=== PATIENT | female | born 1955 | race Caucasian/White ===

== ENCOUNTER 2016-05-13 10:03 | Inpatient (IN) ==
--- NOTE | 2016-05-10 15:03 | Discharge Summary ---
<Chrissy Botello - Last Filed: 05/10/16 15:01> Date of Encounter: 05/10/16 - Discharge Diagnosis (1) Rotator cuff arthropathy Priority: Primary Status: Chronic Qualifiers: Laterality: left Qualified Code(s): M12.812 - Other specific arthropathies , not elsewhere classified, left shoulder (2) Hypertension Priority: Secondary Status: Chronic Qualifiers: Hypertension type: essential hypertension Qualified Code(s): I10 - Essential (primary) hypertension (3) GERD (gastroesophageal reflux disease) Priority: Secondary Status: Chronic Qualifiers: Esophagitis presence: esophagitis presence not specified Qualified Code(s) : K21.9 - Gastro-esophageal reflux disease without esophagitis (4) Tobacco dependence Priority: Secondary Status: Chronic - Discharge Medications Home Medications: OxyCODONE Immed Rel [Roxicodone 5 MG] 5 - 10 mg PO Q6HR PRN #40 tablet 05/12/16 [Rx] Celecoxib [Celebrex] 200 mg PO HS 05/13/16 [History] Cholecalciferol (D-3) [Vitamin D] 2,000 unit PO DAILY 05/13/16 [History] ClonazePAM [Klonopin] 0.5 mg PO BID 05/13/16 [History] Cyclobenzaprine [Flexeril] 10 mg PO DAILY PRN 05/13/16 [History] Lisinopril/Hydrochlorothiazide [Zestoretic 20-25 mg Tablet] 1 each PO DAILY 04/26 [History] Omeprazole [PriLOSEC] 40 mg PO DAILY 05/13/16 [History] Tramadol HCl/Acetaminophen [Ultracet Tablet] 1 each PO BID PRN 05/13/16 [History ] Venlafaxine HCl [Effexor Xr] 225 mg PO HS 05/13/16 [History] Allergies/Adverse Reactions: Allergies No Known Allergies Allergy (Verified 05/13/16 10:55) Primary care physician: Jabier Armstrong MD - Patient Status Disposition: Home, Self-Care Condition: Good - Discharge Instructions Follow Up With: Jabier Armstrong MD [Primary Care Provider] - - Hospital Course Hospital course: Ms. Moses is a 60 year old female - Time Spent with Patient Total time spent providing and/or coordinating discharge services: <Tanisha Ruelas - Last Filed: 05/12/16 21:41> Date of Encounter: 05/12/16 Primary care physician: Jabier Armstrong MD - Hospital Course Hospital course: Ms. Moses is a 60 year old female - Time Spent with Patient Total time spent providing and/or coordinating discharge services: <Omar Parsons - Last Filed: 05/14/16 06:53> Date of Encounter: 05/14/16 Time of Encounter: 06:53 - Discharge Diagnosis (1) Rotator cuff arthropathy Priority: Primary Status: Chronic Qualifiers: Laterality: left Qualified Code(s): M12.812 - Other specific arthropathies , not elsewhere classified, left shoulder (2) Hypertension Priority: Secondary Status: Chronic Qualifiers: Hypertension type: essential hypertension Qualified Code(s): I10 - Essential (primary) hypertension (3) GERD (gastroesophageal reflux disease) Priority: Secondary Status: Chronic Qualifiers: Esophagitis presence: esophagitis presence not specified Qualified Code(s) : K21.9 - Gastro-esophageal reflux disease without esophagitis (4) Tobacco dependence Priority: Secondary Status: Chronic Primary care physician: Jabier Armstrong MD - Patient Status Functional capacity at discharge: independent ambulation Overall status at discharge: patient is back to baseline - Hospital Course Hospital course: Ms. Moses is a 60 year old female The patient had an uneventful postoperative course. They received antibiotics and physical therapy and were discharged in stable condition. There will follow -up in the office in 2 weeks. - Time Spent with Patient Total time spent providing and/or coordinating discharge services:
[2016-05-13] MEDS ORDERED: Albuterol 2.5 MG/3 ML NEBULIZER IH ONE (10:21)
[2016-05-13] MEDS ORDERED: Lidocaine -MPF 1% 2 ML VIAL ID ONE (10:21)
[2016-05-13] MEDS ORDERED: CeFAZolin Pre 2,000 MG/100 ML 2,000 MG/100 ML BAG IVPB ONE (10:21)
[2016-05-13] MEDS ORDERED: Albuterol 2.5 MG/3 ML NEBULIZER ONE (10:24)
[2016-05-13] MEDS ORDERED: Ringers Solution, Lactated 1,000 ML IVC SCH ×2 (10:30→13:00)
[2016-05-13] MEDS ORDERED: Famotidine 20 MG/2 ML VIAL IVP ONE (10:43)
--- NOTE | 2016-05-13 10:54 | Anesthesia Evaluation PreOp ---
Date of Encounter: 05/13/16 Time of Encounter: 10:50 - Past History Planned Operation: Left Total Shoulder Replacement Cardiac History: HTN Pulmonary History: Smoker [employer] History: Other (Fibromyalgia) Other Medical History: GERD Anesthesia History: No Prior Anesthetic Complications : No Alcohol Use: none Drug use: none Medications and Allergies OxyCODONE Immed Rel [Roxicodone 5 MG] 5 - 10 mg PO Q6HR PRN #40 tablet 05/12/16 [Rx] Allergies No Known Allergies Allergy (Verified 05/13/16 10:55) - Meds/Allergy Pre-op Review Medications Reviewed: Yes Allergies Reviewed: Yes Beta Blockers on Current Med List: No Anesthesia Results - Labs Laboratory Tests 05/03/16 05/03/16 16:00 16:00 Hgb 12.6 Hct 37.9 Plt Count 368 Sodium 138 Potassium 3.8 BUN 12 Creatinine 0.78 - Imaging EKG: report reviewed (ST) Anesthesia Exam O2 Sat Height 1.63 m Height 1.63 m Weight 73.482 kg Weight 73.482 kg O2 Sat by Pulse Oximetry 98 O2 Sat by Pulse Oximetry 98 Vital Signs Temp Pulse Resp BP Pulse Ox 98.6 F 91 18 124/91 98 05/13/16 10:35 05/13/16 10:35 05/13/16 10:35 05/13/16 10:35 05/13/16 10:35 Height: 5'4 Weight: 162 lbs NPO (# of Hours): MN Pain Scale: 0 - HEENT Pupil (Motor): Pupils equal, EOMI Mallampati: III Teeth: Normal Oral Opening: Less than or equal to 3 - RUBBER [employer]OL[employer] LOC: Oriented [employer]ER Motor: Normal RUE, Normal LUE, Normal RLE, Normal LLE, Normal Face [employer] Sensory: Normal: RUE, LUE, RLE, LLE, Face - Cardiac Rhythm: Regular Murmur: None JVD: No Carotid Bruit: No - Pulmonary Breath Sounds: bilateral Clear Respiratory Effort: Symmetrical Anesthesia Assess/Plan ASA Score: 2 Modified Franck Scale for Level of Consciousness: Cooperative, oriented, and tranquil Anesthetic Plan: General, Regional Monitoring Plan: Standard Monitors Recovery Plan: PACU (Discussed GA and RA, agrees to proceed)
--- NOTE | 2016-05-13 10:55 | History & Physical Report ---
Date of Encounter: 05/13/16 Time of Encounter: 10:55 24 Hour HP Update - Instructions Instructions: If the History and Physical is less than 30 days old and was completed prior to A.M. admission and or procedure and has NOT been updated on calendar day of procedure please complete this update prior to performing procedure. - Update Patient reports changes in Medical Condition: No Changes in examination, assessment, or condition: No Changes in Medication: No Preop tests/diagnostics Reviewed: Yes Surgery Remains Indicated: Yes Consent for Planned Operative Procedure(s) Verified: Yes - Pre-Operative Checklist Preoperative Checklist Indicated: No Prophylactic Antibiotic Ordered: Yes Is VTE Prophylaxis Indicated?: Yes
[2016-05-13] MEDS ORDERED: *HR* Succinylcholine 200 MG/10 ML VIAL IVP ONE (11:39)
[2016-05-13] MEDS ORDERED: Ondansetron 4 MG/2 ML VIAL ONE (11:39)
[2016-05-13] MEDS ORDERED: Lidocaine -MPF 2% 2 ML VIAL ONE (11:39)
[2016-05-13] MEDS ORDERED: *HR* FentaNYL (PF) 100 MCG/2 ML VIAL ONE (11:39)
[2016-05-13] MEDS ORDERED: Dexamethasone 4 MG/ML VIAL ONE (11:39)
[2016-05-13] MEDS ORDERED: *HR* Propofol 200 MG/20 ML VIAL IVP ONE (11:40)
[2016-05-13] MEDS ORDERED: *HR* Midazolam HCl 2 MG/2 ML VIAL ONE (11:40)
[2016-05-13] MEDS ORDERED: ROPIVACAINE HCL/PF 0.5% 30 ML VIAL ONE (11:50)
--- NOTE | 2016-05-13 12:15 | Anesthesia Procedures ---
Date of Encounter: 05/13/16 Time of Encounter: 12:15 Procedures: Anesthesia - Nerve Block Procedure Date: 05/13/16 Time: 12:13 Allergies/Adv Reactions: Allergies No Known Allergies Allergy (Verified 05/13/16 10:55) Pre-op Diagnosis: left rotator cuff arthropathy Surgical Procedure: left shoulder reverse ball Checklist: Correct Patient Identifier, Correct procedure, History checked Correct side: Left Blood Thinner: No Monitor Applied: EKG, BP, Pulse Oximetry Supplemental Oxygen via Nasal Cannula (L/min): 2 Sedation: Versed (mg): 2 Sedation: Fentanyl (mcg): 50 Indication: Post Op Analgesia Pre-op Neuro Deficits: No Block Type: Supraclavicular Catheter placed: No Sterile Technique: Yes Ultrasound used: Yes Anatomy identified: Yes Visual spread of Local: Yes Neuro Stimulation: No Blood on Needle Aspiration: No Smooth Injection of Local: Yes Pain with Injection of Local: No Prep: Chlorhexadine Needle: 22 x 50 mm Stimuplex Local: Ropivacaine (0.5% ) Volume (cc): 30 Number of Attempts: 1 Complications: None/effective block Vitals: Vs within normal limits during 5 minute procedure. Patient awake during procedure and able to communicate clearly with minimal sedation.
[2016-05-13] MEDS ORDERED: *HR* Morphine 2 MG/ML SYRINGE IVP PRN (12:51)
[2016-05-13] MEDS ORDERED: Dexamethasone 4 MG/ML VIAL IVP ONE (12:51)
[2016-05-13] MEDS ORDERED: Ondansetron 4 MG/2 ML VIAL IVP ONE (12:51)
[2016-05-13] MEDS ORDERED: *HR* HYDROmorphone (PF) 1 MG/ML SYRINGE IVP PRN ×2 (12:51→14:14)
--- NOTE | 2016-05-13 13:19 | Orthopedic Operative Note ---
Date of procedure: 05/13/16 Pre-op diagnosis: Left shoulder arthritis Post-op diagnosis: same Procedure: Procedure: Left Total Shoulder Replacement biceps tenodesis Estimated blood loss: 100 cc Hardware:Arthrex glenoid: Median humeral stem: 7 humeral head 46 x 18 Exam Under anesthesia:restricted all planes Procedural Notes: Grade 4 arthritic changes humeral head and socket significant osteophyte formation of the humeral neck Operative procedure: The patient was brought to the operating room and placed on the operating room table. After general anesthesia was administered the operative shoulder was examined. Findings were noted. The patient was placed in the modified beachchair position. All pressure points were padded appropriately. And the head was stabilized in the neutral position. The operative extremity was prepped and draped in the sterile surgical fashion. The patient received IV antibiotics prior to skin incision. A standard deltopectoral approach was made to the operative shoulder. Incision was made to the skin and subcutaneous tissue,hemo stasis was obtained with Bovie cautery. Using careful blunt dissection the cephalic vein was identified and mobilized medially. The deltopectoral interval was developed and the clavipectoral fascia was incised. The subscap was released off the lesser tuberosity and tagged with #2 FiberWire suture. The humerus was dislocated osteophytes were present were removed and the humeral cut was made along the anatomic neck. Patient does have grade 4 arthritic changes humeral head. Anterior and posterior Bankart retractors were placed to expose the glenoid. Patient noted to have grade 4 arthritic changes glenoid socket. The glenoid guide was seated and the centering hole was made. It was reamed with the appropriate reamer. The finishing guide was seated superior and inferior drill holes were placed. Patient punch was seated trial was seated had good fit and fixation. The medium glenoid component was cemented in place held with digital pressure until cemented hardened. A good fit and fixation. The humerus was redislocated and prepared with the diaphyseal reamers, followed by a broaching process up to the appropriate size 7 in the patient's anatomic version. Trial components were removed and drill holes were placed in the bicipital groove x 2. The apex stem was filled with a #5 FiberWire suture through the holes in the stem the 2 lateral fin holes were passed through the drill holes in the lesser tuberosity and passed through the biceps tendon. The component was impacted in place the neck angle and version were locked in place with the inferior and superior screws the 46 trial head was seated and secured in the appropriate position shoulder had good motion and stability. Trial head was removed real 46 head was seated and secured subscap was repaired to the humerus as well as the humeral stem incorporating the biceps tendon for biceps tenodesis and a subscap repair. The deltopectoral interval was closed with a running #1 PDS suture, subcutaneous tissue was irrigated and closed with 0 PDS suture, the skin was closed with Dermabond. The patient was placed in a sterile dressing, abduction brace and extubated. The patient was then transferred to the recovery room in stable condition. Anesthesia: GETA Surgeon: Omar Parsons Condition: stable Disposition: PACU
--- NOTE | 2016-05-13 14:10 | Anesthesia Evaluation Post Op ---
Date of Encounter: 05/13/16 Time of Encounter: 14:10 - Vital Signs Vital Signs: Vital Signs/O2 Sat/Glucose, Most Current Temp Pulse Resp BP Pulse Ox 05/13/16 14:02 98.1 F 95 16 134/94 99 05/13/16 13:52 97 14 142/100 99 05/13/16 13:42 94 16 126/86 98 05/13/16 13:32 97.1 F L 94 16 143/86 95 05/13/16 12:00 93 16 121/85 96 05/13/16 10:35 98.6 F 91 18 124/91 98 - Lungs Lungs: Clear Ascult./Percussion - Airway Airway: Non-obstructed - Cardiovascular Regular Rate - Mental Status Mental Status: Alert & Oriented, Answers Appropriately - Pain Pain Scale: 0 - Nausea Vomiting Nausea Vomiting: Not Present - Hydration Hydration: Ice chips - Discharge PostOp Status: Transfer Patient to floor
[2016-05-13] MEDS ORDERED: Temazepam 15 MG CAPSULE PO PRN (14:14)
[2016-05-13] MEDS ORDERED: Naloxone 0.4 MG/ML INJ IVP PRN (14:14)
[2016-05-13] MEDS ORDERED: Ondansetron 4 MG/2 ML VIAL IVP PRN (14:14)
[2016-05-13] MEDS ORDERED: Sennosides 8.6 MG TABLET PO PRN (14:14)
[2016-05-13] MEDS ORDERED: MOM Conc 10 ML UD.LIQ PO PRN (14:14)
[2016-05-13] MEDS ORDERED: ACETAMINOPHEN PO PRN (14:14)
[2016-05-13] MEDS ORDERED: Acetaminophen 325 MG TABLET PO PRN (14:14)
[2016-05-13] MEDS ORDERED: *HR* OxyCODONE Immed Rel 5 MG TABLET PO PRN ×2 (14:14)
[2016-05-13] MEDS ORDERED: TRAMADOL HCL PO PRN (14:14)
[2016-05-13] MEDS ORDERED: *HR* Enoxaparin 30 MG/0.3 ML SYRINGE SQ SCH (18:00)
[2016-05-13] MEDS: ceFAZolin 2,000 MG in D5% in Water 100 ML IVPB SCH ×2 (18:02→23:35)
[2016-05-13] MEDS: *HR* Enoxaparin 30 MG/0.3 ML SYRINGE SQ SCH (18:02)
[2016-05-13 19:44] LABS: Hematocrit 37.9 % (35.3-44.9); Hemoglobin 12.6 g/dL (11.5-15.4)
[2016-05-13] MEDS: clonazePAM 0.5 MG TABLET PO SCH (20:17)
[2016-05-13] MEDS ORDERED: Celecoxib 200 MG CAPSULE PO SCH (21:00)
[2016-05-13] MEDS ORDERED: Venlafaxine XR (24 HR) 75 MG CAP.ER.24H PO SCH (21:00)
[2016-05-14 01:48] LABS: Hematocrit 34.1 % (35.3-44.9); Hemoglobin 11.7 g/dL (11.5-15.4)
[2016-05-14] MEDS: Ringers Solution, Lactated 1,000 ML IVC SCH (04:09)
[2016-05-14] MEDS: *HR* Enoxaparin 30 MG/0.3 ML SYRINGE SQ SCH (05:12)
[2016-05-14 06:37] VITALS: BP 143/87
[2016-05-14 06:43] LABS: Hematocrit 34.9 % (35.3-44.9); Hemoglobin 11.7 g/dL (11.5-15.4)
--- NOTE | 2016-05-14 06:54 | Orthopedics Progress Note ---
Date of Encounter: 05/14/16 Time of Encounter: 06:53 - Assessment and Plan (1) Rotator cuff arthropathy Current Visit: Yes Status: Chronic Qualifiers: Laterality: left Qualified Code(s): M12.812 - Other specific arthropathies , not elsewhere classified, left shoulder (2) Hypertension Current Visit: Yes Status: Chronic Qualifiers: Hypertension type: essential hypertension Qualified Code(s): I10 - Essential (primary) hypertension (3) GERD (gastroesophageal reflux disease) Current Visit: Yes Status: Chronic Qualifiers: Esophagitis presence: esophagitis presence not specified Qualified Code(s) : K21.9 - Gastro-esophageal reflux disease without esophagitis (4) Tobacco dependence Current Visit: Yes Status: Chronic Subjective Interval history: Patient was seen this morning doing well without complaints. Afebrile vital signs stable. Operative extremity: Neurovascularly intact Dressing clean dry and intact Calves nontender Assessment and plan: Continue with postoperative care Discharge today Objective Vital signs: Vital Signs Temp Pulse Resp BP Pulse Ox 05/14/16 06:35 98.6 F 108 18 143/87 93 05/14/16 04:00 97.8 F 88 18 125/83 95 05/14/16 00:00 98.0 F 90 17 121/78 95 05/13/16 20:47 98.8 F 98 18 128/78 94 05/13/16 17:51 99 F 104 16 126/82 93 05/13/16 16:02 98.3 F 97 18 127/82 94 05/13/16 15:37 98.0 F 100 18 137/84 95 05/13/16 15:20 96 05/13/16 15:01 97.2 F L 98 18 121/86 96 05/13/16 14:16 99.3 F 95 16 135/89 98 05/13/16 14:12 98.1 F 94 14 120/96 99 05/13/16 14:02 98.1 F 95 16 134/94 99 05/13/16 13:52 97 14 142/100 99 05/13/16 13:42 94 16 126/86 98 05/13/16 13:32 97.1 F L 94 16 143/86 95 05/13/16 12:00 93 16 121/85 96 05/13/16 10:35 98.6 F 91 18 124/91 98 Intake and Output 05/13/16 05/13/16 05/14/16 15:59 23:59 07:59 Intake Total 200 / 200 460 / 460 Output Total 100 / 100 Balance -100 / -100 200 / 200 460 / 460 Intake: IV Fluids 100 / 100 100 / 100 Ancef 2,000 MG In 100 / 100 100 / 100 Dextrose 5% 100 ML @ 200 mls/hr IVPB Q8HR AYAN Rx#: [id number] Oral 100 / 100 360 / 360 Output: Estimated Blood Loss 100 / 100 Other: # Voids 1 1 Weight 73.482 kg - Labs CBC & BMP: 05/14/16 06:20 Labs: Abnormal lab results Hct 34.9 % (35.3-44.9) L 05/14/16 06:20 - VTE Documentation of Mechanical Device: Venous foot pump, device Consult Discharge Plan - Plan Referrals: Jabier Armstrong MD [Primary Care Provider] -
[2016-05-14] MEDS: clonazePAM 0.5 MG TABLET PO SCH (07:11)
[2016-05-14] MEDS ORDERED: Cholecalciferol (D-3) 1,000 UNIT TABLET PO SCH (09:00)
== END 2016-05-14 09:25 | disposition home or self-care (01) | DRG 483 ==
LOC: SAMDAY 10:03 → 3NENU 14:49
PROVIDERS: ADMIT Orthopaedic Surgery; ATTEND Orthopaedic Surgery